=== PATIENT | male | born 1980 | race Caucasian/White ===

== ENCOUNTER 2021-02-01 09:02 | Emergency (ER) | payer SELFPAY ==
[~2021-02-01] VITALS: Ht 175 cm; Wt 100.0 kg
[~2021-02-01 09:02] MED LIST: ASPI-875 PO; DIPH25TA82 PO; METO25TA2 PO; NTR.4SL SL; PRAV40TA PO
[2021-02-01] MEDS ORDERED: LIDOCAINE 1% INJ 20 ML 20 ML VIAL ONE (09:08)
[2021-02-01 09:13] VITALS: BP 140/96
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
[2021-02-01] MEDS ORDERED: CEPH500T PO (09:39)
[2021-02-01] MEDS ORDERED: ACHD5005 PO (09:39)
== END 2021-02-01 09:43 | disposition home or self-care (01) ==
LOC: EDUNIT# 09:02 → ER FS 09:04
DX: S51.812A Laceration without foreign body of left forearm, initial encounter (principal); Z72.0 Tobacco use; Z79.82 Long term (current) use of aspirin; W31.89XA Contact with other specified machinery, initial encounter

== ENCOUNTER 2021-02-13 22:12 | Emergency (ER) | payer SELFPAY ==
[~2021-02-13] VITALS: Ht 172.7 cm; Wt 89.0 kg
[~2021-02-13 22:12] MED LIST changes: +ACHD5005 PO; +CEPH500T PO
[2021-02-13] MEDS ORDERED: LIDOCAINE/EPI 2% 1:100,00 (XYLOCAINE) 20 ML VIAL INJ ONE (22:30)
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
== END 2021-02-13 22:58 | disposition home or self-care (01) ==
LOC: EDUNIT# 22:12 → ER FS 22:13
DX: S01.01XA Laceration without foreign body of scalp, initial encounter (principal); S01.312A Laceration without foreign body of left ear, initial encounter; Z79.82 Long term (current) use of aspirin; Y04.2XXA Assault by strike against or bumped into by another person, initial encounter
CPT/HCPCS: 12001

== ENCOUNTER 2022-03-25 21:47 | Emergency (ER) | payer SELFPAY ==
[~2022-03-25] VITALS: Ht 172.7 cm; Wt 91.0 kg
[2022-03-25 21:50] VITALS: BP 130/81
--- NOTE | 2022-03-25 22:10 | ED General ---
General Chief Complaint: Bite-Animal/Human/Insect Stated Complaint: L EAR LOBE LAC/DOG BITE Nursing Triage Note: Pt presents with c/o ear laceration secondary to a dog bite. Pt states he was out walking his dog when another dog attacked it. Pt was seperating the two dogs when his ear was bitten. He states he does not know the other dog, who it belongs to, or where it came from. Pt is UTD on TdaP Source of Information: Patient Exam Limitations: No Limitations History of Present Illness Date Seen by Provider: Mar 25, 2022 Time Seen by Provider: 21:55 Initial Comments 42-year-old male with no pertinent past medical history coming in after allegedly being bitten by a dog. He was walking his dog when he says a stray dog came to attack his. He got down to the level, and it bit his left ear. This happened shortly prior to arrival. Having constant, moderate, throbbing pain in his left ear which nothing seems to make better or worse. His last tetanus shot was last year. He has never been vaccinated for rabies. He states the dog looked like a stray dog, but did not look unhealthy. The dog did get away afterwards and he has never seen it before. He is otherwise denying any other acute complaints. Allergies and Home Medications Allergies Coded Allergies: No Known Drug Allergies (Unverified , 05/23/13) Patient Home Medication List Home Medication List Reviewed: Yes Aspirin ([place] [employer] Aspirin) 81 Mg Tablet.dr, 81 MG PO DAILY, (Reported) Entered as Reported by: HOLLIE ABRAHAM on 05/23/13 1309 Cephalexin (Cephalexin) 500 Mg Tablet, 500 MG PO TID Prescribed by: NAYE BURTON on 02/01/21 0939 Ciprofloxacin HCl (Ciprofloxacin HCl) 500 Mg Tablet, 500 MG PO BID Prescribed by: EDUARDO SADLER on 03/25/22 2329 Diphenhydramine Hcl (Diphenhydramine 25 Mg) 25 Mg Tablet, 25 MG PO DAILY, (Reported) Entered as Reported by: HOLLIE ABRAHAM on 05/23/13 1312 Hydrocodone Bit/Acetaminophen (HYDROcodone/APAP 5 MG/325 MG TAB) 1 Tab Tab, 1 TAB PO Q8H PRN for PAIN-SEVERE (8-10) Prescribed by: EDUARDO SADLER on 03/25/22 2330 Hydrocodone/Acetaminophen (Hydrocodone-Acetamin 5-325 mg) 1 Each Tablet, 1 TAB PO Q4H PRN for PAIN-MODERATE (5-7) Prescribed by: NAYE BURTON on 02/01/21 0940 Metoprolol Tartrate (Metoprolol Tartrate 25 Mg) 25 Mg Tablet, 25 MG PO BID, (Reported) Entered as Reported by: HOLLIE ABRAHAM on 05/23/13 1311 Pravastatin Sodium (Pravachol) 40 Mg Tablet, 40 MG PO HS, (Reported) Entered as Reported by: HOLLIE ABRAHAM on 05/23/13 1311 Review of Systems Review of Systems Constitutional: No fever EENTM: see HPI Respiratory: no symptoms reported Cardiovascular: no symptoms reported Gastrointestinal: no symptoms reported Genitourinary: no symptoms reported Musculoskeletal: no symptoms reported Skin: see HPI Psychiatric/Neurological: No Symptoms Reported Past Khxwaem-Uqkujy-Vipzyc Hx Patient Social History Substance use?: No Past Medical History Surgeries: No Physical Exam Vital Signs Vital Signs - First Documented 03/25/22 21:50 Temp 36.5 Pulse 98 Resp 20 B/P (MAP) 130/81 (97) Capillary Refill : Less Than 3 Seconds Height, Weight, BMI Height: 5'10.00" Weight: 210lbs. oz. 95.348502wf; 30.00 BMI Method: General Appearance: No Apparent Distress, WD/WN Eyes: Bilateral Eye Normal Inspection, Bilateral Eye PERRL HEENT: PERRL/EOMI, Pharynx Normal, Other (Laceration through the left lobule of the ear just at the level of the tragus, no cartilage involved, completely through the skin to the other side) Neck: Full Range of Motion, Normal Inspection, Non Tender, Supple Respiratory: Chest Non Tender, Lungs Clear, Normal Breath Sounds, No Accessory Muscle Use, No Respiratory Distress Cardiovascular: Regular Rate, Rhythm, No Edema, Normal Peripheral Pulses Gastrointestinal: Normal Bowel Sounds, Non Tender, Soft; No Guarding Back: Normal Inspection, No CVA Tenderness, No Vertebral Tenderness Extremity: Normal Capillary Refill, Normal Inspection, Normal Range of Motion, Non Tender, No Calf Tenderness, No Pedal Edema Neurologic/Psychiatric: Alert, No Motor/Sensory Deficits, Normal Mood/Affect Skin: Normal Color, Warm/Dry Lymphatic: No Adenopathy Procedures/Interventions Wound Location: Ears (Left ear lobule) Wound Length (cm): 3.5 Wound's Depth, Shape: sub Q (Full-thickness through ear lobule) Wound Explored: contaminated Irrigated w/ Saline (ccs): 1000 Anesthesia: 1% Lidocaine (Regular block performed with good anesthesia achieved) Volume Anesthetic (ccs): 8 Suture: Ethlion Suture Size: 5-0 Number of Sutures: 12 Progress Full-thickness tear through the left ear lobule, no cartilage exposed, after auricular block, the wound was cleaned extensively. Closed with simple interrupted sutures with good apposition of wound Progress/Results/Core Measures Suspected Sepsis SIRS Temperature: Pulse: 98 Respiratory Rate: 20 Blood Pressure 130 /81 Mean: 97 Results/Orders My Orders Orders - EDUARDO SADLER MD Lidocaine 1% Inj 20 Ml (Xylocaine 1% Inj (03/25/22 22:15) Rabies Immune Globulin/Pf 10ml (Kedrab 1 (03/25/22 22:45) Rabies Vaccine Human Dipl Cell (Rabavert (03/25/22 22:45) Ciprofloxacin Tablet (Cipro Tablet) (03/25/22 23:30) Vital Signs/I&O 03/25/22 21:50 Temp 36.5 Pulse 98 Resp 20 B/P (MAP) 130/81 (97) Capillary Refill : Less Than 3 Seconds Blood Pressure Mean: 97 Progress Note : Progress Note 42-year-old male presenting after dog bite. ABCs were intact and vitals were stable on presentation. Physical exam with a laceration to his left ear lobule. This was cleaned extensively, a regular block performed, and closed with simple erupted sutures that are nonabsorbable. Antibiotic ointment placed afterwards. Contacted the real estate portfolio manager who recommended giving rabies immunoglobulin as well as vaccine given that the dog is a stray and likely will not be able to be found. This was performed per protocol. The patient will need to get the rest of the vaccines as an outpatient which she was given a written order for. His tetanus vaccine is already up-to-date. He will be given a prescription for ciprofloxacin as well. Departure Impression Primary Impression: Dog bite Qualified Codes: W54.0XXA - Bitten by dog, initial encounter Additional Impression: Ear lobe laceration Qualified Codes: S01.312A - Laceration without foreign body of left ear, initial encounter Disposition: 01 HOME, SELF-CARE Condition: Stable Departure-Patient Inst. Decision time for Depature: 23:50 Referrals: NO,LOCAL PHYSICIAN (PCP/Family) Primary Care Physician Patient Instructions: Animal Bites ED, Laceration Repair With Stitches ED Add. Discharge Instructions: The stitches need to come out in 7 days. Will be on antibiotics for the next week. Take ibuprofen and/or Tylenol as needed for pain. He will also need a rabies vaccine on days 3, 7, and 14. This will be on 03/27/22, 04/01/22, and 04/08/22. Take the order form given to you to [facility] to get this done as an outpatient on these days. It is VERY important you get this done as if you contract rabies it is fatal. Scripts Hydrocodone Bit/Acetaminophen (HYDROcodone/APAP 5 MG/325 MG TAB) 1 Tab Tab 1 TAB PO Q8H PRN for PAIN-SEVERE (8-10) for 2 Days, #6 TAB 0 Refills Prov: EDUARDO SADLER MD 03/25/22 Ciprofloxacin HCl (Ciprofloxacin HCl) 500 Mg Tablet 500 MG PO BID for 7 Days, #14 TAB Prov: EDUARDO SADLER MD 03/25/22 Work/School Note: Work Release Form Date Seen in the Emergency Department: Mar 25, 2022 Return to Work: Mar 27, 2022 Restrictions: No Restrictions EDUARDO SADLER MD Mar 25, 2022 22:09
[2022-03-25] MEDS ORDERED: LIDOCAINE 1% INJ 20 ML VIAL INJ ONE (22:15)
[2022-03-25] MEDS ORDERED: RABIES VACCINE HUMAN DIPL CELL 1 ML/2.5 UNITS SYR IM ONE (22:45)
[2022-03-25] MEDS ORDERED: RABIES IMMUNE GLOBULIN (KEDRAB) 1,500 UNITS/10 ML IM ONE (22:45)
[2022-03-25] MEDS ORDERED: CIPR500T5 PO (23:29)
[2022-03-25] MEDS ORDERED: CIPROFLOXACIN 500 MG (CIPRO) TABLET PO STA (23:30)
[2022-03-25] MEDS ORDERED: ACHD5005 PO (23:30)
== END 2022-03-25 23:00 | disposition home or self-care (01) ==
LOC: EDUNIT# 21:47 → ER FS 21:48
DX: S01.312A Laceration without foreign body of left ear, initial encounter (principal); Z23 Encounter for immunization; Z28.310 Unvaccinated for COVID-19; W54.0XXA Bitten by dog, initial encounter; Y93.K1 Activity, walking an animal
CPT/HCPCS: 12052; 64450; 90675; 90676